=== PATIENT | male | born 2000 | race Caucasian/White ===

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

== ENCOUNTER 2019-07-13 12:45 | Emergency (ER) | payer SELFPAY ==
--- NOTE | 2019-07-13 13:04 | ER Document Report ---
ED Medical Screen (RME) - General Chief Complaint: Abscess Stated Complaint: ABSCESS/BUTTOCK Time Seen by Provider: 07/13/19 13:00 Primary Care Provider: AVA NEGRETE MD [Primary Care Provider] - Follow up as needed Mode of Arrival: Ambulatory Information source: Patient Notes: 18-year-old healthy male presents emergency department with complaints of abscess near his tailbone. Reports it started yesterday. Denies history of MRSA. Reports he thinks he had a small abscess when he was younger on his lower leg. No other complaint such as fever vomiting diarrhea. I have greeted and performed a rapid initial assessment of this patient. A comprehensive ED assessment and evaluation of the patient, analysis of test results and completion of the medical decision making process will be conducted by additional ED providers. TRAVEL OUTSIDE OF THE [place] IN LAST 30 DAYS: No - Related Data Allergies/Adverse Reactions: Penicillins Allergy (Verified 07/13/19 13:01) oxycodone [Oxycodone] Adverse Reaction (Severe, Verified 07/13/19 13:01) VOMITING Past Medical History Pulmonary Medical History: Reports: Hx Pneumonia - 2009 Renal/ Medical History: Denies: Hx Peritoneal Dialysis Past Surgical History: Reports: Hx Oral Surgery - Immunizations Immunizations up to date: Yes Hx Diphtheria, Pertussis, Tetanus Vaccination: Yes Physical Exam - Vital signs Vitals: Temp Pulse Resp BP Pulse Ox 97.7 F 91 16 119/65 99 07/13/19 12:49 07/13/19 12:49 07/13/19 12:49 07/13/19 12:49 07/13/19 12:49 Course - Vital Signs Vital signs: Temp Pulse Resp BP Pulse Ox 97.7 F 91 16 119/65 99 07/13/19 12:49 07/13/19 12:49 07/13/19 12:49 07/13/19 12:49 07/13/19 12:49 Doctor's Discharge - Discharge Referrals: AVA NEGRETE MD [Primary Care Provider] - Follow up as needed
--- NOTE | 2019-07-13 13:47 | ER Document Report ---
ED Skin Rash/Insect Bite/Abscs - General Chief Complaint: Abscess Stated Complaint: ABSCESS/BUTTOCK Time Seen by Provider: 07/13/19 13:00 Primary Care Provider: AVA NEGRETE MD [ACTIVE STAFF] - Follow up in 3-5 days Mode of Arrival: Ambulatory Information source: Patient Notes: 18-year-old male sent to ED for complaint of abscess near his tailbone. He states it started yesterday. He states is worse when he is sitting or working out. He denies any history of abscesses in the past. He states that he can feel something that feels like is moving in that area. Patient is alert oriented respirations regular nonlabored walking with even steady gait. He denies any fevers nausea vomiting or any other symptoms. TRAVEL OUTSIDE OF THE [place] IN LAST 30 DAYS: No - HPI Patient complains to provider of: Other - States he thinks he has an abscess to the tailbone. Onset: Yesterday Onset/Duration: Gradual Quality of pain: Pressure, Sharp Severity: None Pain Level: Denies Skin Character: Abscess Exacerbated by: Sitting - Working out Relieved by: Denies Similar symptoms previously: No Recently seen / treated by doctor: No - Related Data Allergies/Adverse Reactions: Penicillins Allergy (Verified 07/13/19 13:01) oxycodone [Oxycodone] Adverse Reaction (Severe, Verified 07/13/19 13:01) VOMITING Home Medications: denies Past Medical History - General Information source: Patient - Social History Smoking Status: Current Some Day Smoker Cigarette use (# per day): Yes - About every other week Chew tobacco use (# tins/day): No Smoking Education Provided: Yes - 4 Minutes Frequency of alcohol use: Social - Every other week Drug Abuse: None Lives with: Family Family History: Reviewed & Not Pertinent Patient has homicidal ideation: No - Past Medical History Cardiac Medical History: Reports: None Pulmonary Medical History: Reports: Hx Pneumonia - 2010 EENT Medical History: Reports: None Neurological Medical History: Reports: None Endocrine Medical History: Reports: None Renal/ Medical History: Reports: None Malignancy Medical History: Reports None GI Medical History: Reports: None Musculoskeletal Medical History: Reports None Skin Medical History: Reports Hx Cellulitis - To the leg when he was younger Psychiatric Medical History: Reports: None Traumatic Medical History: Reports: None Infectious Medical History: Reports: None Past Surgical History: Reports: Hx Oral Surgery - Immunizations Immunizations up to date: Yes Hx Diphtheria, Pertussis, Tetanus Vaccination: Yes Review of Systems - Review of Systems Constitutional: No symptoms reported EENT: No symptoms reported Cardiovascular: No symptoms reported Respiratory: No symptoms reported Gastrointestinal: No symptoms reported Genitourinary: No symptoms reported Male Genitourinary: No symptoms reported Musculoskeletal: No symptoms reported Skin: Other - Painful area to his coccyx/tailbone Hematologic/Lymphatic: No symptoms reported Neurological/Psychological: No symptoms reported -: Yes All other systems reviewed and negative Physical Exam - Vital signs Vitals: Temp Pulse Resp BP Pulse Ox 97.7 F 91 16 119/65 99 07/13/19 12:49 07/13/19 12:49 07/13/19 12:49 07/13/19 12:49 07/13/19 12:49 Interpretation: Normal - General General appearance: Appears well, Alert - HEENT Head: Normocephalic, Atraumatic Eyes: Normal Pupils: PERRL - Respiratory Respiratory status: No respiratory distress Chest status: Nontender Breath sounds: Normal Chest palpation: Normal - Cardiovascular Rhythm: Regular Heart sounds: Normal auscultation Murmur: No - Abdominal Inspection: Normal Distension: No distension Bowel sounds: Normal Tenderness: Nontender Organomegaly: No organomegaly - Back Back: Normal, Tender - Area of his coccyx and tailbone - Extremities General upper extremity: Normal inspection, Nontender, Normal color, Normal ROM, Normal temperature General lower extremity: Normal inspection, Nontender, Normal color, Normal ROM, Normal temperature, Normal weight bearing. No: Ayush's sign - Neurological Neuro grossly intact: Yes Cognition: Normal Orientation: AAOx4 Abdullahi Coma Scale Eye Opening: Spontaneous Stanton Coma Scale Verbal: Oriented Stanton Coma Scale Motor: Obeys Commands Stanton Coma Scale Total: 15 Speech: Normal Motor strength normal: LUE, RUE, LLE, RLE Sensory: Normal - Psychological Associated symptoms: Normal affect, Normal mood - Skin Skin Temperature: Warm Skin Moisture: Dry Skin Color: Normal Course - Re-evaluation Re-evalutation: 07/13/19 15:08 Ordered a dedicated ultrasound to rule out pilonidal cyst as I could feel no abscess no fluctuation. tap and die maker technician stated that they could find no pockets of fluids all they could see was black, which is what they see with bone. She did canceled the exam because she stated she could not get any images to send. I have discussed with patient the results and asked if he would like an xray. He stated he did not want an x-ray because he had not fallen, he is just very tender when he tries to workout. He states he is not having pain when he just walks around. Patient will be discharged home to follow-up with his primary care doctor. - Vital Signs Vital signs: Temp Pulse Resp BP Pulse Ox 97.9 F 70 18 112/78 98 07/13/19 16:30 07/13/19 16:30 07/13/19 16:30 07/13/19 16:30 07/13/19 16:30 Discharge - Discharge Clinical Impression: Coccyx pain Condition: Stable Disposition: HOME, SELF-CARE Additional Instructions: He was seen today for pain in your coccyx area. Present was not able to visualize any abscess. I was not able to palpate any abscess. You state you have not fallen or injured coccyx area and did not want an x-ray as you just thought you had an abscess. Acetaminophen Acetaminophen may be taken for pain relief or fever control. It's much sa matthew than aspirin, offering a wider range of "safe" dosages. It is safe during . Some brand names are Tylenol, Panadol, Datril, Anacin 3, Tempra, and Liquiprin. Acetaminophen can be repeated every four hours. The following are maximum recommended dosages: WEIGHT Dose Drops Elixir Chewable(80mg) (LBS.) drprs=droppers tsp=teaspoon 6 40 mg .4 ml (1/2) 6-11 80 mg .8 ml (full) 1/2 tsp 1 tab 12-16 120 mg 1 1/2 drprs 3/4 tsp 1 1/2 tabs 17-23 160 mg 2 drprs 1 tsp 2 tabs 24-30 240 mg 3 drprs 1 1/2 tsp 3 tabs 30-35 320 mg 2 tsp 4 tabs 36-41 360 mg 2 1/4 tsp 4 1/2 tabs 42-47 400 mg 2 1/2 tsp 5 tabs 48-53 480 mg 3 tsp 6 tabs 54-59 520 mg 3 1/4 tsp 6 1/2 tabs 60-64 560 mg 3 1/2 tsp 7 tabs 65-70 600 mg 3 3/4 tsp 7 1/2 tabs 71-76 640 mg 4 tsp 8 tabs 77-82 720 mg 4 1/2 tsp 9 tabs 83-88 800 mg 5 tsp 10 tabs >89 pounds or adults 650 mg to 900 mg Acetaminophen can be repeated every four hours. Maximum daily dose not to exceed 4000 mg. These maximum recommended dosages are slightly higher than the dosages written on the product container, but these dosages are very safe and well below the toxic dosage for acetaminophen. Ibuprofen Ibuprofen is an excellent, safe drug for pain control. In addition, it has potent antiinflammatory effects which are beneficial, especially in the treatment of injuries, arthritis, or tendonitis. It's best to take ibuprofen with food. Persons with ulcer disease or allergy to aspirin should notify their physician of this before taking ibuprofen. Take the medication exactly as prescribed. Don't take additional doses unless instructed to do so by your doctor. If you develop wheezing, shortness of breath, hives, faintness, stomach pain, vomiting, or dark black stools, return for re-evaluation at once. Please try to find a donut pillow to use when you do your workouts or a gel pad to put on your workout bench. There is no obvious injuries to your coccyx area. There is no obvious abscess. FOLLOW-UP CARE: If you have been referred to a physician for follow-up care, call the physicians office for an appointment as you were instructed or within the next two days. If you experience worsening or a significant change in your symptoms, notify the physician immediately or return to the Emergency Department at any time for re-evaluation. Referrals: AVA NEGRETE MD [ACTIVE STAFF] - Follow up in 3-5 days
[2019-07-13 16:31] VITALS: BP 112/78
== END 2019-07-13 16:30 | disposition home or self-care (01) ==
LOC: ER 12:45
DX: M53.3 Sacrococcygeal disorders, not elsewhere classified (principal); L02.31 Cutaneous abscess of buttock; Z88.0 Allergy status to penicillin; Z88.8 Allergy status to other drugs, medicaments and biological substances; F17.210 Nicotine dependence, cigarettes, uncomplicated
CPT/HCPCS: 99282; 99406